=== PATIENT | male | born 1970 | race Caucasian/White ===

== ENCOUNTER 2019-05-02 09:47 | Emergency (ER) | payer OTHER ==
[~2019-05-02] VITALS: Ht 172.7 cm; Wt 102.1 kg
[2019-05-02] MEDS ORDERED: IBUPROFEN600 MG PO (10:27)
[2019-05-02] MEDS ORDERED: TESSALON PERLE100 M1 PO (10:27)
[2019-05-02] MEDS ORDERED: SEPTDS PO (10:27)
[2019-05-02] MEDS ORDERED: FLONASE ALLERG9.9 ML NAS (10:27)
== END 2019-05-02 11:47 | disposition home or self-care (01) ==
LOC: ED 09:47
DX: S53.402A Unspecified sprain of left elbow, initial encounter (principal); J32.9 Chronic sinusitis, unspecified; X58.XXXA Exposure to other specified factors, initial encounter; Y93.89 Activity, other specified; Y92.89 Other specified places as the place of occurrence of the external cause; Y99.8 Other external cause status